=== PATIENT | male | born 1985 | race Two or more races ===

== ENCOUNTER 2016-05-26 13:01 | Outpatient (CLI) | payer OTHER ==
[2016-05-26] MEDS ORDERED: IOTHALAMATE MEGLUMINE 50 ML VIAL IVP ONE (14:27)
[2016-05-26] MEDS ORDERED: GADOPENTETATE DIMEGLUMINE 5 ML VIAL IVP ONE (14:27)
[2016-05-26] MEDS ORDERED: BUFFERED LIDOCAINE 10 ML SYRINGE IU ONE (14:27)
== END 2016-05-26 13:02 | disposition home or self-care (01) ==
DX: M75.111 Incomplete rotator cuff tear or rupture of right shoulder, not specified as traumatic (principal); M75.31 Calcific tendinitis of right shoulder
CPT/HCPCS: 23350; 73222; 77002; Q9961